=== PATIENT | female | born 1950 | race Caucasian/White ===

== ENCOUNTER 2017-09-12 21:23 | Emergency (ER) | payer MEDICARE, OTHER ==
--- NOTE | 2017-09-12 22:01 | EDM.PDOC ---
ED HPI GENERAL MEDICAL PROBLEM - General Chief Complaint: Upper Extremity Injury/Pain Stated Complaint: ARM INJURY Time Seen by Provider: 09/12/17 21:33 Source of Information: Reports: Patient History Limitations: Reports: No Limitations - History of Present Illness INITIAL COMMENTS - FREE TEXT/NARRATIVE: the patient is a 67-year-old female with a chief complaint of right forearm injury. She was walking out of it and event and missed a step and fell on an outstretched right arm. She has pain in the forearm area. Denies additional injury. No numbness or tingling. No pain in the right shoulder or elbow or wrist. No wound. No head injury or additional injury. No recent illness. Pain overall is mild to moderate, she declines pain medications. Treatments DIRECTOR OF RESEARCH AND DEVELOPMENT: Reports: Other (see below) Other Treatments DIRECTOR OF RESEARCH AND DEVELOPMENT: ice Right Wrist Pain Score (Numeric/FACES): 4 - Related Data Allergies Allergy/AdvReac Type Severity Reaction Status Date / Time ibuprofen [From Motrin] Allergy Hives Verified 09/12/17 21:45 naproxen [From Anaprox] Allergy Hives Verified 09/12/17 21:45 Sulfa (Sulfonamide Allergy Hives Verified 09/12/17 21:45 Antibiotics) HRT Allergy Hives Uncoded 09/12/17 21:45 Home Meds: Home Meds Hydroxyurea [Hydrea] 500 mg PO DAILY 09/12/17 [History] Levothyroxine 25 mcg PO DAILY 09/12/17 [History] Spironolactone 50 mg PO DAILY 09/12/17 [History] oxyCODONE 5 mg PO 5XDAY PRN #20 tab 09/12/17 [Rx] Past Medical History Musculoskeletal History: Reports: Other (See Below) Endocrine/Metabolic History: Reports: Hypothyroidism Hematologic History: Reports: Other (See Below) Other Hematologic History: thrombocytosis - Past Surgical History Other Musculoskeletal Surgeries/Procedures:: rotator cuff surgery Social & Family History - Tobacco Use Smoking Status *Q: Never Smoker - Caffeine Use Caffeine Use: Reports: Coffee, Tea - Recreational Drug Use Recreational Drug Use: No Review of Systems - Review of Systems Review Of Systems: See Below Constitutional: Reports: No Symptoms Respiratory: Denies: Shortness of Breath Cardiovascular: Reports: No Symptoms GI/Abdominal: Reports: No Symptoms Musculoskeletal: Reports: Arm Pain Skin: Denies: Wound Neurological: Reports: No Symptoms. Denies: Tingling, Weakness ED EXAM, GENERAL - Physical Exam Exam: See Below Exam Limited By: No Limitations General Appearance: Alert, WD/WN, No Apparent Distress Eye Exam: Bilateral Eye: Normal Inspection Ears: Normal External Exam Nose: Normal Inspection Throat/Mouth: Normal Inspection, Normal Voice, No Airway Compromise Head: Atraumatic, Normocephalic Neck: Normal Inspection Respiratory/Chest: No Respiratory Distress Cardiovascular: Normal Peripheral Pulses, No Edema Extremities: Normal Inspection, Other (right upper extremity: No clavicle or shoulder tenderness or deformity. No humerus tenderness. No elbow tenderness or effusion. Full range of motion at the elbow. Patient does have distal forearm tenderness. No deformity or swelling or ecchymosis. Skin intact throughout. No wrist tenderness. Full range of motion at the wrist. Distal motor/perfusion/ sensation intact.) Course - Vital Signs Last Recorded V/S: Last Vital Signs Temp 36.4 C 09/12/17 21:40 Pulse 79 09/12/17 21:40 Resp 20 09/12/17 21:40 BP 141/61 H 09/12/17 21:40 Pulse Ox 97 09/12/17 21:40 - Orders/Labs/Meds Orders: Active Orders 24 hr Category Date Time Status Forearm 2V Rt [CR] Stat Exams 09/12/17 21:58 Ordered Meds: Medications Discontinued Medications Generic Name Dose Route Start Last Admin Trade Name Freq PRN Reason Stop Dose Admin Oxycodone HCl 5 mg 09/12/17 22:57 09/12/17 23:06 Oxycodone PO 09/12/17 22:58 5 mg ONETIME ONE Administration - Re-Assessments/Exams Free Text/Narrative Re-Assessment/Exam: 09/12/17 23:42 orearm x-ray shows a minimally displaced distal radius fracture. It does not appear to have intra-articular extension. Patient was placed in a short arm splint She is to follow-up with orthopedics in a week. Discussed return precautions. Departure - Departure Time of Disposition: 22:57 Disposition: Home, Self-Care 01 Clinical Impression: Distal radius fracture, right Qualifiers: Encounter type: initial encounter Fracture type: closed Fracture morphology: other extra-articular Qualified Code(s): S52.551A - Other extraarticular fracture of lower end of right radius, initial encounter for closed fracture - Discharge Information Prescriptions: oxyCODONE 5 mg PO 5XDAY PRN #20 tab PRN Reason: Pain Instructions: Radial Fracture Referrals: PCP,None [Primary Care Provider] - Forms: ED Department Discharge Additional Instructions: 1. Ice area of injury tonight and tomorrow when able. Keep arm elevated when able. Wear sling as needed for comfort. 2. Take aspirin and/or acetaminophen as needed for pain. Take oxycodone as needed for severe pain. No driving when taking oxycodone as it may make you sleepy or confused. 3. Follow up with the orthopedist of your choice in approximately one week for further care. Call [phone] if you'd like to follow up with Dr. Boggs here. 4. Return to the ED for any new or concerning symptoms, such as severe pain, numbness/weakness, or any other concerning symptoms. - My Orders Last 24 Hours: My Active Orders 09/12/17 21:58 Forearm 2V Rt [CR] Stat - Assessment/Plan Last 24 Hours: My Active Orders 09/12/17 21:58 Forearm 2V Rt [CR] Stat
[2017-09-12] MEDS ORDERED: oxyCODONE 5 MG Tab PO ONE (22:57)
--- NOTE | 2017-09-13 14:14 | CR ---
Right forearm: Two views of the right forearm were obtained. Comparison: No prior study. Distal radial fracture is noted through the metaphysis with mild posterior impaction. Small avulsion fracture is noted off the tip of the ulnar styloid process. Degenerative change is noted within the CMC joint of the thumb. No other acute bony abnormality is seen. Soft tissue swelling is noted. Impression: 1. Slightly impacted distal right radial fracture. 2. Minimal fracture within the ulnar styloid process. 3. Other incidental findings. Diagnostic code #3
== END 2017-09-12 23:12 | disposition home or self-care (01) ==
LOC: JD.ED 21:23
DX: S52.551A Other extraarticular fracture of lower end of right radius, initial encounter for closed fracture (principal); Z88.6 Allergy status to analgesic agent; Z88.2 Allergy status to sulfonamides; Z79.899 Other long term (current) drug therapy
CPT/HCPCS: 29125; 73090; 99283; A9270